=== PATIENT | female | born 1995 | race African-American/Black ===

== ENCOUNTER 2018-04-01 07:28 | Emergency (ER) | payer OTHER, MEDICAID ==
[2018-04-01 08:21] LABS: BASOPHILS % (AUTO) 0.5 % (0.0-5.0); EOSINOPHILS % (AUTO) 0.3 % (0.0-8.0); HEMATOCRIT 39.9 % (36-48); LYMPHOCYTES % (AUTO) 11.5 % (21.0-51.0); MEAN CORPUSCULAR HEMOGLOBIN 28.4 pg (27.0-33.0); MONOCYTES % (AUTO) 6.9 % (3.0-13.0); NEUTROPHILS % (AUTO) 80.8 % (40.0-77.0); PLATELET COUNT (AUTO) 273 K/uL (130-400); RED BLOOD CELL COUNT(AUTO) 4.64 MIL/uL (4.00-5.50); RED CELL DISTRIBUTION WIDTH 13.1 % (11.0-15.5); WHITE BLOOD COUNT (AUTO) 13.2 K/uL (4.8-10.8)
[2018-04-01 08:31] LABS: BILIRUBIN,URINE Negative (NEGATIVE); COLOR,URINE Yellow (YELLOW); GLUCOSE, URINE (UA) Negative (NEGATIVE); KETONES,URINE Negative (NEGATIVE); LEUKOCYTE ESTERASE ,URINE Trace (NEGATIVE); NITRATE,URINE Negative (NEGATIVE); OCCULT BLOOD,URINE Small (NEGATIVE); PH,URINE 5.5 (5.0-8.0); PROTEIN,URINE Negative (NEGATIVE)
[2018-04-01 08:34] LABS: HCG,QUAL RESULT NEGATIVE (NEGATIVE)
[2018-04-01 08:35] LABS: APPEARANCE,URINE CLEAR (CLEAR)
[2018-04-01 08:36] LABS: CREATININE 0.8 mg/dL (0.5-1.5); POTASSIUM 3.5 mmol/L (3.5-5.1)
[2018-04-01 08:40] LABS: BACTERIA,URINE Few /HPF (None Seen)
[2018-04-01 08:41] LABS: MUCUS,URINE Many LPF (None Seen)
[2018-04-01 08:45] LABS: BILIRUBIN,TOTAL 0.9 mg/dL (0.2-1.0); TOTAL PROTEIN, SERUM 8.3 g/dL (6.0-8.3)
[2018-04-01] MEDS ORDERED: CLINDAMYCIN 600 MG/D5% WATER 50 ML IV ONE (08:55)
[2018-04-01] MEDS ORDERED: KETOROLAC TROMETHAMINE 30MG/ML ONE (08:55)
[2018-04-01 09:24] LABS: ERYTHROCYTE SEDIMENTATION RATE 21 MM/HR (0-20)
== END 2018-04-01 09:55 | disposition home or self-care (01) ==
LOC: EDH 07:28
DX: L03.116 Cellulitis of left lower limb (principal)
CPT/HCPCS: 36415; 80053; 81001; 81025; 85025; 85651; 86140; 93971; 96365; 96375; 99284; J1885; J3490